=== PATIENT | female | born 1955 | race Caucasian/White ===

== ENCOUNTER 2018-11-25 17:44 | Inpatient (IN) | payer OTHER, SELFPAY ==
[2018-11-25 18:40] LABS: Bilirubin Negative (Negative); Blood, Urine Trace (Negative); Clarity CLEAR (Clear); Glucose, Urine (Dipstick) Negative (Negative); Leukocyte Negative (Negative); Nitrite Negative (Negative); Protein, Urine (Dipstick) 30 mg/dL (Neg-Trace); Specific Gravity, Urine 1.018 (1.002-1.036); Urobilinogen 0.2 mg/dL (0.2-1.0)
[2018-11-25 18:47] LABS: #Lymphocytes 0.9 thou/uL (1.20-3.40); #Monocytes 0.3 thou/uL (0.11-0.59); #Neutrophils 6.4 thou/uL (1.40-6.50); %Basophils 0.4 % (0.0-1.0); %Eosinophils 0.1 % (0.0-10.0); %Lymphocytes 11.9 % (21.0-51.0); %Monocytes 4.2 % (0.0-10.0); %Neutrophils 83.4 % (42.0-75.0); Hemoglobin 12.9 g/dL (12.0-16.0); Mean Corpuscular Volume 94.1 fL (78.0-98.0); Mean Platelet Volume 8.3 fL (7.4-10.4); Platelet Count 150 thou/uL (130-400); RBC Distribution Width 13.2 % (11.5-14.5); Red Blood Cell (RBC) Count 4.03 mill/uL (4.20-5.40); White Blood Cell (WBC) Count 7.7 thou/uL (4.8-10.8)
[2018-11-25 18:47] LABS: Bacteria/HPF None Seen HPF (None Seen); RBC/HPF None Seen HPF (0-3); Squamous Epithelial 0-3 HPF (0-3); WBC/HPF None Seen HPF (0-3)
[2018-11-25 18:48] LABS: Hyaline Casts/LPF NONE SEEN LPF (0-3 Hyaline)
[2018-11-25] MEDS ORDERED: Ondansetron PF 4 MG/2 ML Vial ONE (19:05)
[2018-11-25 19:09] LABS: ALT (SGPT) 13 U/L (8-55); AST (SGOT) 26 U/L (5-34); Albumin 4.3 g/dL (3.4-4.8); Alcohol Less than 10 mg/dL (Less than 10); Alkaline Phosphatase 44 U/L (40-150); Anion Gap 15 mmol/L (10-20); BUN (Urea Nitrogen) 15 mg/dL (9.8-20.1); Bilirubin, Total 0.4 mg/dL (0.2-1.2); CK (CPK) 162 U/L (29-168); Calc. Creatinine Clearance 0 mL/min (70-130); Calcium 9.2 mg/dL (7.8-10.44); Carbon Dioxide 24 mmol/L (23-31); Chloride 105 mmol/L (98-107); Estimated GFR-MDRD 67; Globulin 2.4 g/dL (2.4-3.5); Glucose 124 mg/dL (80-115); Potassium 3.8 mmol/L (3.5-5.1); Protein, Total 6.7 g/dL (6.0-8.3); Sodium 140 mmol/L (136-145)
[2018-11-25 19:31] LABS: CKMB 2.8 ng/mL (0-6.6)
--- NOTE | 2018-11-25 19:38 | CT ---
CT HEAD WITHOUT CONTRAST: Date: 11/25/18 Multiple axial tomograms obtained through head without IV enhancement. INDICATION: Syncope. No comparison. FINDINGS: Ventricles have normal size and position. There is mild cortical volume loss. No evidence of focal ma ss or infarct. There is a focal density at the foramen of Monro, which has somewhat of a linear appearance and has d ensity suggesting calcification. Colloid cyst can create at this location; however, this does not hav e the typical appearance. I could represent an irregular colloid cyst. An intraventricular hemorrhage is not completely excluded, but felt less likely. Recommend follow-up MRI to further evaluate this. No evidence of cortical infarct. No evidence of parenchymal mass or hemorrhage. Sinuses and mastoids are clear. IMPRESSION: Abnormal density at the foramen of Monro. An atypical colloid cyst is a consideration as noted above. Recommend further evaluation with MRI. POS: CIERRA
--- NOTE | 2018-11-25 19:40 | RAD ---
PORTABLE CHEST: Date: 11/25/18 HISTORY: Syncope. No comparison. FINDINGS: Lungs appear clear. No infiltrate. Heart is mildly enlarged. There is a scoliotic curvature of the th oracolumbar spine. Multiple clips in the right axilla indicate prior breast procedure. IMPRESSION: No acute lung process. POS: CIERRA
--- NOTE | 2018-11-25 22:07 | MRI ---
BRAIN MRI NONCONTRAST: Date: 11/25/18 INDICATION: Hyperdensity on preceding head CT, follow-up. FINDINGS: Discrete signal abnormality at the level of the foramen of Monro related to the head CT hyperdensity is not confirmed on the basis of this exam. There is motion artifact, which does limit evaluation. Mi nimal white matter signal alteration indicates microvascular ischemic disease. There is parenchymal v olume loss, mild in degree. The imaged skull base flow-voids are distorted by motion. No significant intracranial hemorrhagic susceptibility. No acute territorial infarction, intracranial mass effect, n or midline shift. IMPRESSION: 1. No definitive evidence for acute intracranial abnormality. 2. Signal abnormality related to hyperdensity at level of foramen of Monro is not confirmed on the b asis of this exam. This likely relates to choroid plexus calcification. As a conservative measure, re commend a short-term follow-up head CT to confirm stability and/or resolution, in 3-4 weeks. MERLE T. POS: TAWANNA
[2018-11-25 23:01] LABS: Troponin I 0.166 ng/mL (< 0.028)
[2018-11-25] MEDS ORDERED: Aspirin 325 MG TAB ONE (23:59)
[2018-11-26] MEDS ORDERED: Ondansetron ODT 4 MG TAB PO PRN (02:17)
[2018-11-26] MEDS ORDERED: Acetaminophen 325 MG TAB PO PRN (02:17)
[2018-11-26] MEDS ORDERED: Ondansetron PF 4 MG/2 ML Vial IVP PRN (02:17)
[2018-11-26] MEDS ORDERED: Acetaminophen 650 MG Suppository PR PRN (02:17)
[2018-11-26] MEDS ORDERED: Lorazepam 0.5 MG TAB PO PRN (02:24)
[2018-11-26 02:34] LABS: Troponin I 0.142 ng/mL (< 0.028)
[2018-11-26] MEDS: Nicotine 21 MG PATCH TD SCH (02:45)
[2018-11-26 04:06] LABS: #Lymphocytes 1.9 thou/uL (1.20-3.40); #Monocytes 0.4 thou/uL (0.11-0.59); #Neutrophils 3.5 thou/uL (1.40-6.50); %Basophils 0.2 % (0.0-1.0); %Eosinophils 0.3 % (0.0-10.0); %Lymphocytes 32.5 % (21.0-51.0); %Monocytes 6.6 % (0.0-10.0); %Neutrophils 60.4 % (42.0-75.0); Hemoglobin 11.9 g/dL (12.0-16.0); Mean Corpuscular HGB CONC 34.5 g/dL (32.0-36.0); Mean Corpuscular Hemoglobin 32.5 pg (27.0-31.0); Mean Platelet Volume 8.6 fL (7.4-10.4); Platelet Count 135 thou/uL (130-400); RBC Distribution Width 13.3 % (11.5-14.5); Red Blood Cell (RBC) Count 3.67 mill/uL (4.20-5.40); White Blood Cell (WBC) Count 5.8 thou/uL (4.8-10.8)
[2018-11-26 04:25] LABS: Anion Gap 10 mmol/L (10-20); BUN (Urea Nitrogen) 14 mg/dL (9.8-20.1); Calc. Creatinine Clearance 64 mL/min (70-130); Calcium 9.1 mg/dL (7.8-10.44); Carbon Dioxide 27 mmol/L (23-31); Cardiac Risk 2.5 (Less than 4.5); Chloride 108 mmol/L (98-107); Cholesterol 188 mg/dl (< 200 Desired); Estimated GFR-MDRD 72; Glucose 103 mg/dL (80-115); HDL Cholesterol 75 mg/dL (>60 Neg Risk); LDL Cholesterol, Calculated 100 mg/dL; Potassium 4.1 mmol/L (3.5-5.1); Sodium 141 mmol/L (136-145); Triglycerides 65 mg/dL (Less than 150)
[2018-11-26] MEDS ORDERED: Famotidine/PF 20 mg/2ml Vial SLOW IVP SCH (09:00)
--- NOTE | 2018-11-26 10:08 | HP ---
CHIEF COMPLAINT: Syncopal episode with shortness of breath. HISTORY OF PRESENT ILLNESS: Ms. 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 The patient states she recalls feeling faint and reports experiencing shortness of breath and lowering her go to the ground. She also recalls trying to crawl to get help and then does not recall anything after that. According to the ED notes, the syncopal episode was witnessed; however, the patient states she is not aware of how long she took to come to. She states she feels she may have overworked herself and had not maintained adequate fluid intake. She routinely drinks coffee throughout the day and adds 6 ounces of whiskey to her coffee to help with chronic back pain. The patient also takes 1000 mg of Natan aspirin every morning with her coffee. She does not drink any other liquids. The patient reports noting increasing shortness of breath for the last 2 to 3 months. She reports noticing gradual worsening with her breathing and feels often times short of breath while at rest. She denies experiencing any chest pain, but does report occasional right upper quadrant discomfort. She was reported to have had one episode of vomiting following her syncopal episode and also had an episode of diarrhea. The patient herself does not recall this. At this present time, she states she feels back to her usual self. She is very anxious at the moment and very concerned regarding her personal history of breast cancer. She underwent treatment in the 90s and had a bilateral mastectomy. She has a very strong family history of lung cancer, breast cancer , and colon cancer in her family. The patient states she often worries that any symptom or pain she might experience is associated with recurrent cancer. She does not follow up with anyone at this present time. In the ED, she underwent laboratory studies including a troponin, which was indeterminately elevated at 0.092. Again, the patient denied any complaints of chest pain; however, she is admitted for ACS rule out. REVIEW OF SYSTEMS: The patient reports feeling generally fatigued and states her shortness of breath has been progressively worsening over the course of the last 2 to 3 months. She reports a chronic cough but no hemoptysis. She smokes two packs per day. She states she often feels short of breath even while at rest. Denies having any chest pain. She does report having right upper quadrant discomfort that occurs occasionally and resolves briefly. She also complains of early satiety and feels her appetite has reduced significantly in the last few months. She has not noted any weight loss. Denies having any abdominal pain or cramping. No changes with her bowels. No urinary symptoms. No headaches or dizziness. No vision changes. All other review of systems apart from those mentioned above in HPI are negative. PAST MEDICAL HISTORY: 1. History of bilateral breast cancer. 2. Alcohol, excess. PAST SURGICAL HISTORY: 1. Bilateral mastectomy. 2. Bunionectomy of the left foot. SOCIAL HISTORY: The patient drinks a shot of whiskey with her coffee every morning. She smokes two packs of cigarettes per day. Denies any illicit drug use. PHYSICAL EXAMINATION: GENERAL: The patient appears thin, disheveled, well-developed, and in no acute distress. She did become tearful when speaking about her history of cancer in herself and her family. VITAL SIGNS: Temperature 98, pulse 84, respirations 18, O2 saturation 95% on room air, and blood pressure 122/84. HEENT: Normocephalic and atraumatic. Pupils are equal, round, and reactive to light. Sclerae are without icterus. Oropharynx is clear. NECK: Supple. LUNGS: Clear to auscultation bilaterally. CARDIAC: S1 and S2. Audible murmur. ABDOMEN: Soft, nontender, nondistended. Normoactive bowel sounds present. No guarding or rigidity. Negative Fritz sign. Liver edge is not palpable. No renal angle tenderness. EXTREMITIES: No lower leg swelling or edema. NEUROLOGIC: Alert and oriented x3. SKIN: Without rash or jaundice. LABORATORY DATA: White blood count 7.7, hemoglobin 12.9, hematocrit 37.9, and platelets 150. Sodium 140, potassium 3.8, BUN 15, creatinine 0.86, GFR 67, glucose 124, calcium 9.2, total bilirubin 0.4, AST 26, ALT 13, and alkaline phosphatase 24. CK 162, CK-MB 2.8. Troponin, 0.092 and 0.166. Total protein 6.7 and albumin 4.3. Urinalysis notable for 30 of protein, trace blood, less than 10 alcohol. IMAGING DATA: 1. Chest x-ray, 11/25/2018; no acute lung process. Heart is mildly enlarged. Scoliotic curvature of the thoracolumbar spine. 2. CT brain, 11/25/2018; abnormal density at the foramina of Monro. An atypical colloid cyst is a consideration. Further imaging with an MRI of the brain recommended. 3. Brain MRI, 11/25/2018; no definite evidence for acute intracranial abnormality. Signal abnormality related to hyperdensity at level of foramina of Monro is not confirmed on exam. Advise short-term followup PET-CT to assess for stability or resolution in the next 3 to 4 weeks. IMPRESSION AND PLAN: Ms. Childers is a 63 year old woman admitted for management of the followin. Syncope/SOB. Noted to have loud murmur on exam. Indeterminate troponin initially, continue to trend. CXR unremarkable, except cardiomegaly. Echo requested. BNP and D-Dimer requested. Lipid panel and TSH with am labs. UA requested. 2. Daily Alcohol use. Initiate ASE protocol. Ativan prn. Urine drug screen. 3. Hyperdensity at level of foramen of Montro. Short term follow-up head CT in 3-4 weeks as outpatient to assess for stability/vs. resolution. 4. Anxiety. Resume ativan. 5. Tobacco dependence. Smokes 2 ppd. Will start on Nicotine patch (21 mg). 6. GI prophylaxis. 8. FULL CODE STATUS. Surrogate Decision Maker: Shannan Childers. Patient case discussed with attending who agrees with plan as above. Job ID: [id number] MTDD
[2018-11-26 16:21] LABS: Medtox Reader # READER 1; THC/Cannabinoid Screen Not Detected (NotDetected)
[2018-11-26 16:22] LABS: Amphetamine Not Detected (NotDetected); Barbiturates Screen Not Detected (NotDetected); Benzodiazepine Screen Not Detected (NotDetected); Cocaine Metabolite Screen Not Detected (NotDetected); Medtox Control Line Valid? VALID (VALID); Methadone Not Detected (NotDetected); Methamphetamine Not Detected (NotDetected); Opiate Screen Not Detected (NotDetected); Oxycodone Screen Not Detected (NotDetected); Phencyclidine (PCP) Not Detected (NotDetected); Tricyclic Screen Not Detected (NotDetected)
--- NOTE | 2018-11-26 17:13 | PDOC.PN ---
- Subjective Encounter Start Date: 11/26/18 Encounter Start Time: 17:11 Patient lying in bed, she reports feeling okay today. She denies chest pain, but reports some mild shortness of breath with activity. Echo shows EF 20% and severe reduced - Objective Resuscitation Status - Order Detail: 11/26/18 02:17 Resuscitation Status Routine Co-Sign Provider: Resuscitation Status: FULL: Full Resuscitation MAR Reviewed: Yes Vital Signs & Weight: Vital Signs (12 hours) Temp Pulse Resp BP BP Pulse Ox 11/26/18 15:45 98.2 F 84 20 102/65 96 11/26/18 11:59 100/59 L 11/26/18 11:00 98.4 F 81 16 100/59 L 93 L 11/26/18 08:00 98/61 11/26/18 07:35 97.9 F 83 15 98/61 93 L 11/26/18 05:15 79 96/59 L Weight Admit Weight 125 lb Weight 125 lb I&O: 11/25/18 11/26/18 11/27/18 06:59 06:59 06:59 Intake Total 200 Balance 200 Result Diagrams: 11/26/18 03:57 11/26/18 03:57 Radiology Reviewed by me: Yes EKG Reviewed by me: Yes Phys Exam - Physical Examination Constitutional: NAD HEENT: moist MMs, oral pharynx no lesions Neck: supple Respiratory: no wheezing, clear to auscultation bilateral Cardiovascular: RRR 3/6 systolic murmur Gastrointestinal: soft, positive bowel sounds Musculoskeletal: pulses present +homans on the right Neurological: normal sensation, moves all 4 limbs Lymphatic: no nodes Psychiatric: normal affect, A&O x 3 Skin: normal turgor, cap refill <2 seconds Dx/Plan (1) Systolic heart failure Code(s): I50.20 - UNSPECIFIED SYSTOLIC (CONGESTIVE) HEART FAILURE Status: Acute (2) Aortic stenosis Code(s): I35.0 - NONRHEUMATIC AORTIC (VALVE) STENOSIS Status: Acute (3) Alcohol abuse Code(s): F10.10 - ALCOHOL ABUSE, UNCOMPLICATED Status: Acute (4) HTN (hypertension) Code(s): I10 - ESSENTIAL (PRIMARY) HYPERTENSION Status: Acute (5) HLD (hyperlipidemia) Code(s): E78.5 - HYPERLIPIDEMIA, UNSPECIFIED Status: Acute - Plan cont current plan of care, DVT proph w/lovenox * Cardiology following and discussed case with Dr Cooper * Patient with reduced EF of 20% and severe noted * Patient to have cardiac catheterization likely tomorrow to further access CAD , but she will ultimately need valve replacement surgery * Continue home medications * Patient with +homans and slightly elevated d-dimer, therefore LE doppler ordered and pending * She continues on Lovenox for DVT/PE prophylaxis * She will be transitioned to inpatient as her condition is complicated by severe reduced EF and
[2018-11-26] MEDS ORDERED: Enoxaparin Sodium 40 MG/0.4 ML SYRINGE SC SCH (17:15)
--- NOTE | 2018-11-26 17:47 | CON ---
DATE OF CONSULTATION: 11/26/2018 REASON FOR CONSULTATION: Syncope. HISTORY OF PRESENT ILLNESS: Ms. Childers is a very pleasant 63-year-old white female, who comes to the hospital for syncope. She was at home. She has a large property with animals. She was walking around, trying to feed her animals and felt faint, felt short winded and went down to the floor. She felt she woke up, she tried to crawl to get help, and then she does not remember anything after that. She is brought into the ER and admitted for further evaluation. Cardiology is being consulted for further evaluation and care of this. She had an echocardiogram, that showed a severely reduced ejection fraction at 20% to 25% and a very heavily calcified aortic valve with critical aortic valve stenosis. PAST MEDICAL HISTORY: 1. Bilateral breast cancer, status post bilateral mastectomies. 2. Alcohol use almost daily for chronic back pain. PAST SURGICAL HISTORY: 1. Bilateral mastectomy. 2. Bilateral breast implants. 3. Bunionectomy, left foot. SOCIAL HISTORY: Drinks a shot of whiskey in her coffee, she drinks 6 glasses of coffee a day, so she gets 6 shots of whiskey every day. Smokes 2 packs of cigarettes a day. No drug use. FAMILY HISTORY: Coronary artery disease in mother. REVIEW OF SYSTEMS: A 12-point review of systems was done and was all negative unless stated in the history of present illness. PHYSICAL EXAMINATION: VITAL SIGNS: Temperature 98.2, pulse 84, respiratory rate 20, sat 96% on room air, and blood pressure 102/65. GENERAL: Awake, alert, and oriented x3. No distress. HEENT: Normocephalic and atraumatic. NECK: Supple. LUNGS: Clear. CARDIOVASCULAR: S1 and S2. No S3 or S4. There is a grade 3/6 systolic murmur at the right upper sternal border. ABDOMEN: Soft. Positive bowel sounds. EXTREMITIES: No edema. SKIN: Warm and dry. LABORATORY DATA: Laboratory work was reviewed. White count of 7.7, hemoglobin of 12, hematocrit of 37, and platelet count of 150. Coags, D-dimer was high. Chemistry was unremarkable. Troponin is in the indeterminate range at 0.09, 0.16, 0.14. BNP was 2439. TSH is normal. Triglycerides of 65, cholesterol total of 188, LDL of 100, and HDL of 75. UA is unremarkable. Toxicology is negative. UA, no growth after 24 hours. DIAGNOSTIC DATA: Echocardiogram was reviewed, EF of 20% to 25%, valve area of 0.3 cm2. Small pericardial effusion without tamponade. ASSESSMENT: 1. Syncope. 2. Critical aortic valve stenosis. 3. Severe acute systolic heart failure, new onset. 4. Ongoing tobacco abuse. 5. History of breast cancer. PLAN: 1. Certainly, her syncope is most likely related to her aortic stenosis. 2. We will plan on doing a heart catheterization tomorrow as she is currently stable, not having any shortness of breath. She is not in acute exacerbation of heart failure. We will see what her burden of coronary artery disease is, to see what the best way to get her valve replaced will be. More than likely she will require surgical repair as the amount of calcification on the valve is probably too much for transcutaneous valve replacement. 3. We have spoken at length about the risks and benefits of the procedure, and she agrees to proceed. 4. Further recommendations per results of coronary angiogram. Job ID: [id number]
[2018-11-26] MEDS: Famotidine 20 MG TAB PO SCH (20:42)
--- NOTE | 2018-11-26 21:29 | ULT ---
RIGHT LOWER EXTREMITY VENOUS DUPLEX STUDY: 11/26/18 INDICATIONS: Pain and edema. Deep veins of the right lower extremity evaluated with color Doppler, spectral analysis and compressi on. Deep veins show normal blood flow and compression. No evidence of DVT. IMPRESSION: Negative right lower extremity venous duplex study. POS: CIERRA
[2018-11-27] MEDS: Nicotine 21 MG PATCH TD SCH ×2 (03:04→20:50)
[2018-11-27] MEDS: Enoxaparin Sodium 40 MG/0.4 ML SYRINGE SC SCH (09:41)
[2018-11-27] MEDS: Famotidine 20 MG TAB PO SCH ×2 (10:01→20:49)
[2018-11-27] MEDS ORDERED: Iopamidol 370 76% 100 ML VIAL ONE (10:46)
[2018-11-27] MEDS ORDERED: Acetaminophen/Codeine 30-300mg Tablet PO PRN (11:04)
[2018-11-27] MEDS ORDERED: Sodium Chloride 0.9% 200 ML IV PRN (11:04)
[2018-11-27] MEDS ORDERED: Sodium Chloride 0.9% 1,000 ML IV SCH (11:15)
--- NOTE | 2018-11-27 14:48 | PDOC.PN ---
- Subjective Encounter Start Date: 11/27/18 Encounter Start Time: 12:30 Doing ok. Post-cath. A little sleepy. - Objective Resuscitation Status - Order Detail: 11/26/18 02:17 Resuscitation Status Routine Co-Sign Provider: Resuscitation Status: FULL: Full Resuscitation Vital Signs & Weight: Vital Signs (12 hours) Temp Pulse Resp BP BP BP Pulse Ox 11/27/18 12:00 110/69 11/27/18 08:00 109/61 11/27/18 07:47 98.4 F 76 15 109/61 93 L 11/27/18 03:01 99.1 F 78 16 113/68 113/68 91 L Weight Admit Weight 125 lb Weight 127 lb 9.6 oz I&O: 11/26/18 11/27/18 11/28/18 06:59 06:59 06:59 Intake Total 200 1370 Output Total 500 Balance 200 870 Result Diagrams: 11/26/18 03:57 11/26/18 03:57 Phys Exam - Physical Examination Constitutional: NAD Cardiovascular: RRR, no rub Ao mumur Gastrointestinal: soft, non-tender, no distention, positive bowel sounds Musculoskeletal: no edema Neurological: non-focal, normal sensation, moves all 4 limbs Psychiatric: normal affect, A&O x 3 Skin: no rash, normal turgor, cap refill <2 seconds Dx/Plan (1) Alcohol abuse Code(s): F10.10 - ALCOHOL ABUSE, UNCOMPLICATED Status: Acute (2) Aortic stenosis Code(s): I35.0 - NONRHEUMATIC AORTIC (VALVE) STENOSIS Status: Acute (3) HLD (hyperlipidemia) Code(s): E78.5 - HYPERLIPIDEMIA, UNSPECIFIED Status: Acute (4) HTN (hypertension) Code(s): I10 - ESSENTIAL (PRIMARY) HYPERTENSION Status: Acute (5) Systolic heart failure Code(s): I50.20 - UNSPECIFIED SYSTOLIC (CONGESTIVE) HEART FAILURE Status: Acute (6) Syncope Code(s): R55 - SYNCOPE AND COLLAPSE Status: Acute (7) Cardiomyopathy Code(s): I42.9 - CARDIOMYOPATHY, UNSPECIFIED Status: Acute (8) Non-ischemic cardiomyopathy Code(s): I42.8 - OTHER CARDIOMYOPATHIES Status: Acute - Plan * Cath found no occlusive disease. * AoV is very calcified. * Discussed with Dr. Cooper. * Plan CT tomorrow to eval Ao and root. * Anticipates open heart valve replacement. * No evidence of decompensated failure now.
[2018-11-28] MEDS: Famotidine 20 MG TAB PO SCH ×2 (08:20→21:37)
[2018-11-28] MEDS: Enoxaparin Sodium 40 MG/0.4 ML SYRINGE SC SCH (08:21)
[2018-11-28] MEDS ORDERED: Iopamidol 370 76% 100 ML VIAL ONE (10:43)
--- NOTE | 2018-11-28 14:01 | CT ---
CT ANGIO CHEST WITH IV CONTRAST AND 3D POST PROCESSIN11/28/18 HISTORY: Chest pain, lethargy, aortic stenosis. Evaluate aortic root. FINDINGS: The thoracic aorta is well opacified without intimal flap to suggest dissection or aneurysmal dilatat ion. The thoracic aorta is ectatic. The thoracic aortic measurements are as follows: At the level of the aortic annulus: 2.8 cm. At the level of the aortic sinus of Valsalva: 3.8 cm. At the level of the sinotubular junction: 3.3 cm. Mid ascending aortic level: 4 cm. High ascending aortic level: 3.1 cm. Descending thoracic aorta: 2.3 cm. The pulmonary artery vasculature is well opacified without filling defects to suggest pulmonary embol ism. No pleural or pericardial effusions are seen. Bibasilar infiltrates versus atelectatic changes a re present. There are degenerative changes with scoliosis of the spine. There are bilateral breast im plants. IMPRESSION: 1. No evidence of aortic dissection or pulmonary embolism. 2. Aortic measurements are above. 3. Bibasilar infiltrate/atelectatic changes. POS: TPC
--- NOTE | 2018-11-28 14:02 | PDOC.PN ---
- Subjective Encounter Start Date: 11/28/18 Encounter Start Time: 13:30 Feels ok. Has a little back pain. Hx of scoliosis. - Objective Resuscitation Status - Order Detail: 11/26/18 02:17 Resuscitation Status Routine Co-Sign Provider: Resuscitation Status: FULL: Full Resuscitation Vital Signs & Weight: Vital Signs (12 hours) Temp Pulse Resp BP BP Pulse Ox 11/28/18 12:05 98.1 F 70 12 104/60 104/60 93 L 11/28/18 07:26 98.4 F 71 16 115/62 115/62 95 11/28/18 04:00 101/61 11/28/18 03:10 98.1 F 68 16 101/61 92 L Weight Admit Weight 125 lb Weight 127 lb 9.6 oz I&O: 11/27/18 11/28/18 11/29/18 06:59 06:59 06:59 Intake Total 1370 120 Output Total 500 Balance 870 120 Result Diagrams: 11/26/18 03:57 11/26/18 03:57 Phys Exam - Physical Examination Constitutional: NAD Respiratory: no wheezing, no rales, no rhonchi, clear to auscultation bilateral AoV mumur Gastrointestinal: soft, non-tender, no distention, positive bowel sounds Musculoskeletal: no edema Psychiatric: normal affect, A&O x 3 Skin: no rash, normal turgor, cap refill <2 seconds Dx/Plan (1) Aortic stenosis Code(s): I35.0 - NONRHEUMATIC AORTIC (VALVE) STENOSIS Status: Acute (2) HLD (hyperlipidemia) Code(s): E78.5 - HYPERLIPIDEMIA, UNSPECIFIED Status: Acute (3) HTN (hypertension) Code(s): I10 - ESSENTIAL (PRIMARY) HYPERTENSION Status: Acute (4) Systolic heart failure Code(s): I50.20 - UNSPECIFIED SYSTOLIC (CONGESTIVE) HEART FAILURE Status: Acute (5) Syncope Code(s): R55 - SYNCOPE AND COLLAPSE Status: Acute (6) Cardiomyopathy Code(s): I42.9 - CARDIOMYOPATHY, UNSPECIFIED Status: Acute (7) Non-ischemic cardiomyopathy Code(s): I42.8 - OTHER CARDIOMYOPATHIES Status: Acute (8) Alcohol abuse Code(s): F10.10 - ALCOHOL ABUSE, UNCOMPLICATED Status: Acute - Plan * Doing well. Awaiting results of CTA evaluating the Ao root. * Will likely need [facility] consult.
--- NOTE | 2018-11-28 17:22 | PDOC.CTH ---
Cardiology Progress Note - Subjective Feeling well. No new issues. - Objective Vital Signs Temp Pulse Resp BP BP Pulse Ox 11/28/18 15:52 98.3 F 65 16 101/66 93 L 11/28/18 12:05 98.1 F 70 12 104/60 104/60 93 L 11/28/18 07:26 98.4 F 71 16 115/62 115/62 95 Admit Weight 125 lb Weight 127 lb 9.6 oz 11/27/18 11/28/18 11/29/18 06:59 06:59 06:59 Intake Total 1370 120 Output Total 500 Balance 870 120 - Physical Examination General/Neuro: alert & oriented x3, NAD Neck: no JVD present Lungs: unlabored respirations Heart: RRR, other: (Grade 3/6 systolic late peaking murmru RUSB) Abdomen: NT/ND Extremities: other: (no edema) - Telemetry Telemetry Rhythm: NSR - Labs Result Diagrams: 11/26/18 03:57 11/26/18 03:57 Troponin/CKMB CK-MB (CK-2) 2.8 ng/mL (0-6.6) 11/25/18 18:29 Troponin I 0.142 ng/mL (< 0.028) H 11/26/18 01:50 - Assessment/Plan 1. Critical . 2. Syncope, likely from . 3. Normal coronary arteries. 4. Severe LV dysfunction. EF at 20-25% 5. Normal aortic root per CT angio. 6. Tobacco use 2PPD. 7. Breast Ca s/p bilat Mastectomy and subsequent implants. PLAN: - Consult CT surgery Dr Mcnair for consideration of AVR.
[2018-11-28] MEDS ORDERED: Communication Order-Pharmacy FS ONE (18:11)
[2018-11-28] MEDS: Nicotine 21 MG PATCH TD SCH (21:36)
--- NOTE | 2018-11-29 00:54 | CON ---
DATE OF CONSULTATION: HISTORY OF PRESENT ILLNESS: Ms. Childers is a 63-year-old woman who was admitted with a syncopal episode. She was moving a goat from one pin to the next and passed out. She since the time of admission has undergone workup which has included echocardiogram. This shows an ejection fraction of 20-25%. Aortic valve area is 0.3 cm2. Her peak to peak gradient is 118, mean gradient is 75. Peak velocity is 543 across the aortic valve with a mean velocity of 407. This is consistent with severe aortic stenosis. She had a cardiac catheterization performed yesterday, which shows no significant coronary artery disease. She has had a CT of her chest performed, which shows a calcified aortic valve. Maximal aortic diameter in the ascending aorta is 4.3 cm. She has large bilateral breast implants, which preclude her from having a minimally invasive approach in my hands. I have been asked to see her to discuss aortic valve replacement. PAST MEDICAL HISTORY: Breast cancer status post mastectomy and breast implants. PAST SURGICAL HISTORY: 1. Bilateral mastectomy. 2. Bunionectomy on the left foot. SOCIAL HISTORY: She smokes 2 packs of cigarettes a day. Does not use any other drugs. She also drinks a significant amount of alcohol. She has been admitted since 11/26 and has no symptomatology consistent with alcohol withdrawal currently. REVIEW OF SYSTEMS: A 10-point review of systems is performed and is negative except as above. PHYSICAL EXAMINATION: GENERAL: This is a well-developed, thin woman resting comfortably. VITAL SIGNS: Height 5 feet, weight is 127 pounds, BSA is 1.57, temperature 98.3, pulse is 65 and regular, and blood pressure is 101/66. HEENT: Sclerae nonicteric. Pupils are equal and round bilaterally. NECK: Supple with bilateral bruits. CHEST: Clear bilaterally. HEART: Rhythm is regular with a harsh systolic ejection murmur heard throughout the precordium. ABDOMEN: Soft and nontender. EXTREMITIES: There is no edema. VASCULAR: She has palpable carotid, radial and femoral pulses bilaterally. PSYCHIATRIC: She is awake, alert, and oriented to person, place, and time. ASSESSMENT AND PLAN: This is a 63-year-old woman with severe aortic stenosis and no coronary artery disease. She is not a minimally invasive surgery candidate due to her large breast implants. I have discussed sternotomy for aortic valve replacement and she is agreeable to make plans for Saturday. Job ID: [id number]
[2018-11-29] MEDS ORDERED: Acetaminophen 650 MG Suppository PR PRN (01:12)
[2018-11-29] MEDS ORDERED: Acetaminophen 325 MG TAB PO PRN (01:12)
[2018-11-29] MEDS ORDERED: Ondansetron PF 4 MG/2 ML Vial IVP PRN (01:13)
[2018-11-29] MEDS ORDERED: Lorazepam 0.5 MG TAB PO PRN (01:13)
[2018-11-29] MEDS ORDERED: Ondansetron ODT 4 MG TAB PO PRN (01:13)
[2018-11-29] MEDS ORDERED: Acetaminophen/Codeine 30-300mg Tablet PO PRN (01:14)
[2018-11-29] MEDS: Nicotine 21 MG PATCH TD SCH (02:22)
--- NOTE | 2018-11-29 07:20 | ULT ---
CAROTID ULTRASOUND WITH METZ SCALE AND DOPPLER DUPLEX COLOR FLOW IMAGING SPECTRAL ANALYSIS PERFORMED: CLINICAL INDICATION: Carotid bruit. FINDINGS: There is mild plaque/intimal thickening of the carotid arteries. PEAK SYSTOLIC VELOCITY (CM/S): Right CCA 148 Left CCA 64 Right ICA 50 Left ICA 52 There is antegrade flow within the visualized bilateral vertebral arteries. IMPRESSION: 1. There is no hemodynamically stenosis of the visualized right internal carotid artery. 2. There is no hemodynamically stenosis of the visualized left internal carotid artery. 3. There is asymmetric elevated velocity of the right common carotid artery. As necessary, this may be further discerned with CTA neck imaging. POS: TAWANNA
[2018-11-29] MEDS: Enoxaparin Sodium 40 MG/0.4 ML SYRINGE SC SCH (08:34)
[2018-11-29] MEDS: Famotidine 20 MG TAB PO SCH ×2 (08:36→21:06)
--- NOTE | 2018-11-29 12:39 | PDOC.PN ---
- Subjective Encounter Start Date: 11/29/18 Encounter Start Time: 11:55 Doing well. No complaints. Eating, drinking, bowels and bladder function all normal. - Objective Resuscitation Status - Order Detail: 11/26/18 02:17 Resuscitation Status Routine Co-Sign Provider: Resuscitation Status: FULL: Full Resuscitation Vital Signs & Weight: Vital Signs (12 hours) Temp Pulse Resp BP BP Pulse Ox 11/29/18 08:00 97.6 F 62 18 101/60 98 11/29/18 04:00 95/58 L 11/29/18 03:07 98.5 F 74 12 95/58 L 95 Weight Admit Weight 125 lb Weight 128 lb 9 oz I&O: 11/28/18 11/29/18 11/30/18 06:59 06:59 06:59 Intake Total 120 1760 Output Total 1700 Balance 120 60 Result Diagrams: 11/26/18 03:57 11/26/18 03:57 Phys Exam - Physical Examination Constitutional: NAD Respiratory: no wheezing, no rales, no rhonchi, clear to auscultation bilateral Cardiovascular: RRR, no rub AoV murmur. Gastrointestinal: soft, non-tender, no distention, positive bowel sounds Musculoskeletal: no edema, pulses present Neurological: non-focal Psychiatric: normal affect, A&O x 3 Skin: no rash, normal turgor, cap refill <2 seconds Dx/Plan (1) Aortic stenosis Code(s): I35.0 - NONRHEUMATIC AORTIC (VALVE) STENOSIS Status: Acute (2) HLD (hyperlipidemia) Code(s): E78.5 - HYPERLIPIDEMIA, UNSPECIFIED Status: Acute (3) HTN (hypertension) Code(s): I10 - ESSENTIAL (PRIMARY) HYPERTENSION Status: Acute (4) Systolic heart failure Code(s): I50.20 - UNSPECIFIED SYSTOLIC (CONGESTIVE) HEART FAILURE Status: Acute (5) Syncope Code(s): R55 - SYNCOPE AND COLLAPSE Status: Acute (6) Cardiomyopathy Code(s): I42.9 - CARDIOMYOPATHY, UNSPECIFIED Status: Acute (7) Non-ischemic cardiomyopathy Code(s): I42.8 - OTHER CARDIOMYOPATHIES Status: Acute (8) Alcohol abuse Code(s): F10.10 - ALCOHOL ABUSE, UNCOMPLICATED Status: Acute - Plan * Stable. Plan AoV surg on Saturday. * Continue DVT prophylaxis. She stopped the Pepcid.
[2018-11-30] MEDS: Nicotine 21 MG PATCH TD SCH (00:04)
[2018-11-30] MEDS: Famotidine 20 MG TAB PO SCH ×3 (08:55→21:32)
[2018-11-30] MEDS: Enoxaparin Sodium 40 MG/0.4 ML SYRINGE SC SCH (08:55)
--- NOTE | 2018-11-30 11:00 | PDOC.PN ---
- Subjective Encounter Start Date: 11/30/18 Encounter Start Time: 09:30 Doing well. Ready for surgery tomorrow. - Objective Resuscitation Status - Order Detail: 11/26/18 02:17 Resuscitation Status Routine Co-Sign Provider: Resuscitation Status: FULL: Full Resuscitation Vital Signs & Weight: Vital Signs (12 hours) Temp Pulse Resp BP BP Pulse Ox 11/30/18 08:00 97.6 F 78 18 91/57 L 93 L 11/30/18 06:45 91/57 L 11/30/18 03:51 98.1 F 66 18 88/52 L 96 Weight Admit Weight 125 lb Weight 126 lb 9.6 oz I&O: 11/29/18 11/30/18 12/01/18 06:59 06:59 06:59 Intake Total 1760 1040 240 Output Total 1700 1530 Balance 60 -490 240 Result Diagrams: 11/26/18 03:57 11/26/18 03:57 Phys Exam - Physical Examination Constitutional: NAD Respiratory: no wheezing, no rales, no rhonchi, clear to auscultation bilateral Cardiovascular: RRR, no rub AoV Mumur Gastrointestinal: soft, non-tender, no distention, positive bowel sounds Musculoskeletal: no edema, pulses present Neurological: non-focal, normal sensation, moves all 4 limbs Psychiatric: normal affect, A&O x 3 Dx/Plan (1) Aortic stenosis Code(s): I35.0 - NONRHEUMATIC AORTIC (VALVE) STENOSIS Status: Acute (2) HLD (hyperlipidemia) Code(s): E78.5 - HYPERLIPIDEMIA, UNSPECIFIED Status: Acute (3) HTN (hypertension) Code(s): I10 - ESSENTIAL (PRIMARY) HYPERTENSION Status: Acute (4) Systolic heart failure Code(s): I50.20 - UNSPECIFIED SYSTOLIC (CONGESTIVE) HEART FAILURE Status: Acute (5) Syncope Code(s): R55 - SYNCOPE AND COLLAPSE Status: Acute (6) Cardiomyopathy Code(s): I42.9 - CARDIOMYOPATHY, UNSPECIFIED Status: Acute (7) Non-ischemic cardiomyopathy Code(s): I42.8 - OTHER CARDIOMYOPATHIES Status: Acute (8) Alcohol abuse Code(s): F10.10 - ALCOHOL ABUSE, UNCOMPLICATED Status: Acute - Plan * Doing well overall. * Surgery anticipated tomorrow for AoV. * Continue nicotine patch.
[2018-12-01] MEDS: Nicotine 21 MG PATCH TD SCH (02:25)
[2018-12-01] MEDS ORDERED: Vancomycin HCl 1 GM in Premix Bag 1 BAG IVPB SCH (10:00)
[2018-12-01] MEDS ORDERED: Albumin 5% 0 ML ONE (10:32)
[2018-12-01] MEDS ORDERED: Fentanyl 100 MCG/2 ML VIAL ONE (10:58)
[2018-12-01] MEDS ORDERED: Midazolam HCl 5 mg/5 ml Vial ONE (10:58)
[2018-12-01] MEDS ORDERED: Vecuronium 10 MG VIAL ONE ×2 (10:59→15:31)
[2018-12-01] MEDS ORDERED: Dexmedetomidine 200 MCG/2 ML VIAL ONE (10:59)
[2018-12-01] MEDS ORDERED: Milrinone 10 MG/10 ML VIAL ONE (10:59)
[2018-12-01] MEDS ORDERED: Norepinephrine 4 MG/4 ML VIAL ONE (10:59)
[2018-12-01] MEDS ORDERED: Ropivacaine 0.5% HCl/PF (150 MG/30 ML VIAL) ONE (10:59)
[2018-12-01] MEDS ORDERED: Heparin 10,000 UNITS/1 ML VIAL 30,000 UNITS in Sodium Chloride 0.9% 1,000 ML FS SCH (11:30)
--- NOTE | 2018-12-01 11:45 | PDOC.CTH ---
Cardiology Progress Note - Subjective Awaiting for surgery today. No new issues. - Objective Vital Signs Temp Pulse Resp BP BP Pulse Ox 12/01/18 08:00 96.2 F L 73 18 97/54 L 96 12/01/18 04:00 97.7 F 67 16 95/58 L 96 11/30/18 23:55 97.6 F 70 14 99/58 L 96 Admit Weight 125 lb Weight 126 lb 9.6 oz 11/30/18 12/01/18 12/02/18 06:59 06:59 06:59 Intake Total 1040 1095 Output Total 1530 Balance -490 1095 - Physical Examination General/Neuro: alert & oriented x3, NAD Neck: no JVD present Lungs: CTA, unlabored respirations Heart: RRR Abdomen: NT/ND Extremities: other: (no edema) - Telemetry Telemetry Rhythm: NSR - Labs Result Diagrams: 11/26/18 03:57 11/26/18 03:57 Troponin/CKMB CK-MB (CK-2) 2.8 ng/mL (0-6.6) 11/25/18 18:29 Troponin I 0.142 ng/mL (< 0.028) H 11/26/18 01:50 - Assessment/Plan 1. Critical 2. Syncope, likely due to critical . 3. Normal coronaries 4. Tobacco use 5. Hx of breast Ca PLAN: - AVR today.
[2018-12-01] MEDS ORDERED: Bupivacaine HCl 0.5%/Epinephrine 1:200,000/PF 30 ml Vial ONE (13:38)
[2018-12-01] MEDS ORDERED: Dexamethasone 4 mg/ml Vial ONE (13:38)
[2018-12-01] MEDS ORDERED: Albumin 5% 500 ML ONE (14:18)
[2018-12-01] MEDS ORDERED: Guaifenesin DM 100-10/5 ML UDCUP PO PRN (14:53)
[2018-12-01] MEDS ORDERED: Nitroglycerin 50 MG/250 ML BOT 250 ML IVPB PRN (14:53)
[2018-12-01] MEDS ORDERED: Potassium Chloride 20 MEQ/100 ML PREMIX BAG IVPB PRN (14:53)
[2018-12-01] MEDS ORDERED: Bisacodyl 5 MG TAB PO PRN (14:53)
[2018-12-01] MEDS ORDERED: Norepinephrine 8 MG in Dextrose 5% in Water 250 ML IVPB PRN (14:53)
[2018-12-01] MEDS ORDERED: HEXTEND 6% LR 500ML 500 ML IVPB PRN (14:53)
[2018-12-01] MEDS ORDERED: HYDROcodone/Acetaminophen 5/325 mg Tablet PO PRN ×2 (14:53)
[2018-12-01] MEDS ORDERED: Mag-Al 1200 mg/1200 mg/30 ML UDCUP PO PRN (14:53)
[2018-12-01] MEDS ORDERED: Ondansetron PF 4 MG/2 ML Vial IVP PRN (14:53)
[2018-12-01] MEDS ORDERED: hydrALAZINE 20 MG/ML VIAL SLOW IVP PRN (14:53)
[2018-12-01] MEDS ORDERED: Fentanyl 100 MCG/2 ML VIAL SLOW IVP PRN ×2 (14:53)
[2018-12-01] MEDS ORDERED: Bisacodyl 10 MG SUPP PR PRN (14:53)
[2018-12-01] MEDS ORDERED: Acetaminophen 325 MG TAB PO PRN (14:53)
[2018-12-01] MEDS ORDERED: Promethazine HCl 25 MG/ML VIAL IM PRN (14:53)
[2018-12-01] MEDS ORDERED: Magnesium 2 GM/50 ML 2 GM in Premix Bag 1 BAG IVPB SCH (15:00)
[2018-12-01] MEDS ORDERED: CEFAZOLIN 2 GM in Premix Bag 1 BAG IVPB SCH ×2 (15:00→18:30)
[2018-12-01] MEDS ORDERED: Nitroglycerin 50 MG/250 ML BOT 0 ML ONE (15:13)
[2018-12-01 15:23] LABS: INR-International Normal Ratio 1.3; PTT 39.7 SEC (22.9-36.1); Prothrombin Time 15.9 SEC (12.0-14.7)
--- NOTE | 2018-12-01 15:24 | RAD ---
RADIOGRAPH CHEST 1 VIEW: DATE: 12/01/2018 TIME: 3:10 PM HISTORY: 63-year-old female status post open heart surgery COMPARISON: 11/25/2018 FINDINGS: All of the following are new since the prior study: Prosthetic aortic valve. Right subclavian central line with distal tip overlying right atrium. Endotracheal tube distal tip overlying mid thoracic trachea. 2 parallel right paramedian chest tubes ascending from inferiorly, with distal tips at mid chest leve l. Sternotomy wires. Supine positioning makes this insensitive for pneumothorax detection. No consolidation or micaela pulmo nary alveolar edema. Lateral costophrenic angles are sharp. IMPRESSION: Status post aortic valve replacement with left support lines as above. No pulmonary edema or consolid ation.
[2018-12-01 15:25] LABS: #Basophils 0.1 thou/uL (0.0-0.2); #Eosinphils 0.1 thou/uL (0.0-0.7); #Lymphocytes 1.9 thou/uL (1.20-3.40); #Monocytes 0.4 thou/uL (0.11-0.59); %Basophils 0.6 % (0.0-1.0); %Eosinophils 0.4 % (0.0-10.0); %Lymphocytes 15.4 % (21.0-51.0); %Monocytes 3.5 % (0.0-10.0); %Neutrophils 80.2 % (42.0-75.0); Hemoglobin 11.2 g/dL (12.0-16.0); Mean Corpuscular HGB CONC 33.7 g/dL (32.0-36.0); Mean Corpuscular Hemoglobin 31.8 pg (27.0-31.0); Mean Corpuscular Volume 94.3 fL (78.0-98.0); Mean Platelet Volume 8.3 fL (7.4-10.4); Platelet Count 116 thou/uL (130-400); Red Blood Cell (RBC) Count 3.52 mill/uL (4.20-5.40); White Blood Cell (WBC) Count 12.5 thou/uL (4.8-10.8)
[2018-12-01] MEDS ORDERED: Lidocaine 2% PF 100 mg/5 ml Syringe ONE (15:31)
[2018-12-01] MEDS ORDERED: Sodium Bicarb 50 MEQ/50 ML VIAL ONE (15:31)
[2018-12-01] MEDS ORDERED: Aminocaproic Acid 5 GM/20 ML VIAL ONE (15:31)
[2018-12-01] MEDS ORDERED: Magnesium 5 GM/10 ML VIAL ONE (15:31)
[2018-12-01] MEDS ORDERED: Thrombin 5000 UNITS/5 ML VIAL ONE (15:31)
[2018-12-01] MEDS ORDERED: Calcium Chloride 1 GM/10 ML Abboject SYRINGE ONE (15:31)
[2018-12-01] MEDS ORDERED: Mannitol 12.5 GM/50 ML ONE (15:31)
[2018-12-01] MEDS ORDERED: Potassium Chloride 60 MEQ/30 ML VIAL ONE (15:31)
[2018-12-01] MEDS ORDERED: Heparin 30,000 units/30 ml VIAL ONE (15:31)
[2018-12-01] MEDS ORDERED: Phenylephrine HCL 10 MG/ML VIAL ONE (15:31)
[2018-12-01] MEDS ORDERED: Protamine Sulfate 250 MG/25 ML VIAL ONE (15:31)
[2018-12-01] MEDS: D5 1/2 NS w/20 mEq KCL 1,000 ML IV SCH (15:31)
[2018-12-01] MEDS ORDERED: PROPOFOL 200 MG/20 ML VIAL ONE (15:31)
[2018-12-01 15:37] LABS: Anion Gap 13 mmol/L (10-20); BUN (Urea Nitrogen) 10 mg/dL (9.8-20.1); Calc. Creatinine Clearance 73 mL/min (70-130); Calcium 7.9 mg/dL (7.8-10.44); Carbon Dioxide 20 mmol/L (23-31); Chloride 111 mmol/L (98-107); Estimated GFR-MDRD 82; Glucose 180 mg/dL (80-115); Potassium 4.4 mmol/L (3.5-5.1); Sodium 140 mmol/L (136-145)
--- NOTE | 2018-12-01 15:46 | PDOC.PN ---
- Subjective Encounter Start Date: 12/01/18 Encounter Start Time: 15:45 Subjective: post op, still on vent - Objective Resuscitation Status - Order Detail: 11/26/18 02:17 Resuscitation Status Routine Co-Sign Provider: Resuscitation Status: FULL: Full Resuscitation MAR Reviewed: Yes Vital Signs & Weight: Vital Signs (12 hours) Temp Pulse Resp BP BP BP Pulse Ox 12/01/18 15:07 85 151/84 H 12/01/18 08:00 96.2 F L 73 18 97/54 L 96 12/01/18 04:00 97.7 F 67 16 95/58 L 96 Weight Admit Weight 125 lb Weight 126 lb 9.6 oz I&O: 11/30/18 12/01/18 12/02/18 06:59 06:59 06:59 Intake Total 1040 1095 Output Total 1530 Balance -490 1095 Result Diagrams: 12/01/18 15:05 12/01/18 15:05 Additional Labs: Accuchecks 12/01/18 12/01/18 12/01/18 15:10 13:17 12:45 POC Glucose 179 H 137 H 128 H Phys Exam - Physical Examination intubated Neck: no JVD rhochi diffusely Cardiovascular: RRR, no significant murmur Gastrointestinal: soft, non-tender, positive bowel sounds Musculoskeletal: no edema Dx/Plan (1) Alcohol abuse Code(s): F10.10 - ALCOHOL ABUSE, UNCOMPLICATED Status: Acute (2) Aortic stenosis Code(s): I35.0 - NONRHEUMATIC AORTIC (VALVE) STENOSIS Status: Acute Qualifiers: Cardiac valve disease etiology: etiology unspecified Qualified Code(s): I35.0 - Nonrheumatic aortic (valve) stenosis (3) Cardiomyopathy Code(s): I42.9 - CARDIOMYOPATHY, UNSPECIFIED Status: Acute Qualifiers: Cardiomyopathy type: unspecified Qualified Code(s): I42.9 - Cardiomyopathy , unspecified (4) HLD (hyperlipidemia) Code(s): E78.5 - HYPERLIPIDEMIA, UNSPECIFIED Status: Chronic Qualifiers: Hyperlipidemia type: unspecified Qualified Code(s): E78.5 - Hyperlipidemia , unspecified (5) HTN (hypertension) Code(s): I10 - ESSENTIAL (PRIMARY) HYPERTENSION Status: Chronic Qualifiers: Hypertension type: essential hypertension Qualified Code(s): I10 - Essential (primary) hypertension (6) Systolic heart failure Code(s): I50.20 - UNSPECIFIED SYSTOLIC (CONGESTIVE) HEART FAILURE Status: Acute Qualifiers: Heart failure chronicity: unspecified Qualified Code(s): I50.20 - Unspecified systolic (congestive) heart failure - Plan post op thoracotomy with aortic valve replaement, doing well at present * .
[2018-12-01 15:57] LABS: Actual Bicarbonate (HCO3a) 19.6 mEq/L (22-28); Base Excess (BEa) -4.3 mEq/L (-2.0 to +3.0); Calcium, Ionized 1.08 mmol/L (1.12-1.30); Carboxyhemoglobin (COHb) 0.4 gm% (0.0-3.0); Hemoglobin (Hb) 12.1 g/dL (12.0-16.0); O2 Tension (PaO2) 77.3 mmHg (> 80.0); Potassium - ABG Lab 3.87 mmol/L (3.70-5.30)
[2018-12-01 16:07] LABS: Puncture Site ALINE
[2018-12-01] MEDS: CEFAZOLIN 2 GM in Premix Bag 1 BAG IVPB SCH (16:34)
[2018-12-01] MEDS: Ketorolac Tromethamine 30 MG/ML VIAL IVP SCH (16:34)
--- NOTE | 2018-12-01 17:02 | OP ---
DATE OF PROCEDURE: 12/01/2018 PREOPERATIVE DIAGNOSIS: Aortic stenosis. POSTOPERATIVE DIAGNOSIS: Aortic stenosis. PROCEDURES PERFORMED: 1. Aortic valve replacement with #27 Magna bioprosthetic valve. 2. Ligation of left atrial appendage. CO-SURGEON: Dr. Kendrick Pearson. ANESTHESIA: General endotracheal - Tamiko Pagan CRNA. PUMP TIME: 78 minutes. CROSS-CLAMP TIME: 57 minutes. LOW CORE TEMPERATURE: 34 degrees Celsius. BEAD MACHINE OPERATOR: Carla García. DRAINS: 24-Georgian chest tubes x2. DRIPS: None. TRANSFUSIONS: None. DESCRIPTION OF PROCEDURE: After consent was obtained, the patient was brought to the operating room, placed in the supine position on the operating table. Appropriate central line was placed and general endotracheal anesthesia induced. Chest and legs were prepped and draped in usual sterile fashion. A skin incision was made for sternotomy. A median sternotomy was performed. The patient was systemically heparinized. Thymic fat and pericardium were divided with electrocautery. Pericardial stay sutures were placed. The aortic and atrial cannulation was performed. After adequate heparinization, retrograde prime was performed. The patient was placed on cardiopulmonary bypass. The left ventricular sump drain was placed into the right superior pulmonary vein. Aortic cross- clamp was applied and antegrade sanguinous cardioplegic arrest was obtained. 1 L of antegrade cold [place] cardioplegia was given. Topical cold solution was used. The left atrial appendage was ligated at its base with running mattressed 4-0 Prolene suture. A transverse hockey-stick aortotomy was then performed. Carbon dioxide was infused in the pericardium throughout the open portion of the procedure. The valve was inspected. There was a 3 leaflet valve with fused left and right commissures. Leaflets were debrided. They were heavily calcified and thickened. Anulus was decalcified. The valve measured as a 27 Magna. This valve was brought into the operative field and washed. Pledgeted 2-0 Ethibond sutures were placed in the anulus. These were then passed through the sewing ring of the valve. The valve seated nicely. Valve was secured with Cor-Knots. Aortotomy was closed in a running fashion in 2 layers with pledgeted 4-0 Prolene suture. De-airing maneuvers were performed prior to the time of suture. Suture was tied. The patient was placed in Trendelenburg position and the cross-clamp removed. After resumption of sinus rhythm, the patient was allowed to eject. The left ventricular sump drain was then removed in its pursestring suture. The aortic cardioplegic needle was removed in its pursestring suture. After resumption of sinus rhythm, good hemodynamics, temperature greater than 36.5, bypass was discontinued. Transfusions were given. Protamine was administered. Decannulation was performed with pursestring suture. The aortic cannulation site was reinforced with pledgeted 4-0 prolene suture. Vancomycin paste was placed on the sternal edges. After adequate hemostasis had been obtained, 24-Georgian chest tubes x2 were placed in the mediastinum. The sternum was closed with #7 wire. Sternum was treated with platelet rich plasma. Wires twisted. Wounds were irrigated and treated with platelet-poor plasma and closed in multiple layers. Needle, sponge, and instrument counts were all reported as correct at the end of the procedure. The patient tolerated the procedure well and was transferred to the intensive care unit in stable, but critical condition. Job ID: [id number] [facility]
--- NOTE | 2018-12-01 18:22 | CON ---
DATE OF CONSULTATION: HISTORY OF PRESENT ILLNESS: Ms. Childers is a 63-year-old female, who has undergone coronary artery bypass grafting today. She is being evaluated after she returned to the critical care unit. She presented on November 26 with syncope and shortness of breath. PAST MEDICAL HISTORY: Remarkable for: 1. Breast cancer and bilateral mastectomy. 2. History of bunionectomy. 3. History of daily whiskey use and 2 packs a day smoking. She does not use drugs reportedly. ALLERGIES: REPORTED TO [facility]. FAMILY HISTORY: Negative for lung disease in early age. REVIEW OF SYSTEMS: 10-point review of systems is not obtainable. She is intubated. PHYSICAL EXAMINATION: VITAL SIGNS: Blood pressure is 151/84, heart rate is 85, respiratory rate is 18, oximetry is 96 on room air prior to surgery. HEENT: Pupils are equal. Sclerae are anicteric. She appears older than her age. NECK: Supple. No lymphadenopathy. LUNGS: Remarkable for no wheezes. HEART: Regular rhythm. S1 and S2 are normal. She is in sinus rhythm by monitor. ABDOMEN: Soft and nontender. EXTREMITIES: Without asymmetry or edema. They are warm. LABORATORY DATA: White count 12.5, hemoglobin 11.2, platelets 116,000. Sodium 140, potassium 4.4, chloride 111, bicarb 20, BUN 10, creatinine 0.72. Drug screen on admission was negative. Urinalysis was unremarkable. IMPRESSION: Status post coronary artery bypass grafting, clinically stable. Hopefully, she will wean per protocol. Blood gases are pending as she just returned from the operating suite. We will be happy to follow the other physicians caring for her. TIME SPENT: This is a 70-minute consult, 50% of the time spent on the unit coordinating care. Job ID: [id number]
[2018-12-01] MEDS ORDERED: CEFAZOLIN 1 GM VIAL SLOW IVP SCH (18:30)
[2018-12-01 19:40] LABS: Actual Bicarbonate (HCO3a) 17.7 mEq/L (22-28); Calcium, Ionized 1.09 mmol/L (1.12-1.30); Carboxyhemoglobin (COHb) 0.2 gm% (0.0-3.0); Hemoglobin (Hb) 10.6 g/dL (12.0-16.0); Potassium - ABG Lab 3.98 mmol/L (3.70-5.30)
[2018-12-01 19:42] LABS: CO2 Tension 20.5 mmHg (35.0-45.0); Puncture Site LINE; pH, Arterial 7.56 (7.35-7.45)
[2018-12-01 19:43] LABS: ALV-art Gradient 180.575 (0-20)
[2018-12-01] MEDS: Vancomycin HCl 1 GM in Premix Bag 1 BAG IVPB SCH (20:50)
[2018-12-01] MEDS: Famotidine/PF 20 mg/2ml Vial SLOW IVP SCH (20:51)
[2018-12-01] MEDS: Morphine 4 MG/ML VIAL SLOW IVP PRN ×2 (21:17→23:04)
[2018-12-01 21:59] LABS: Potassium 3.8 mmol/L (3.5-5.1)
[2018-12-02] MEDS: Ketorolac Tromethamine 30 MG/ML VIAL IVP SCH ×4 (01:21→18:25)
[2018-12-02] MEDS: CEFAZOLIN 2 GM in Premix Bag 1 BAG IVPB SCH ×2 (01:22→08:58)
[2018-12-02] MEDS: Morphine 4 MG/ML VIAL SLOW IVP PRN ×2 (03:30)
[2018-12-02 04:30] LABS: #Lymphocytes 0.6 thou/uL (1.20-3.40); #Monocytes 0.4 thou/uL (0.11-0.59); #Neutrophils 5.9 thou/uL (1.40-6.50); %Lymphocytes 8.6 % (21.0-51.0); %Monocytes 5.7 % (0.0-10.0); %Neutrophils 85.7 % (42.0-75.0); Hemoglobin 9.1 g/dL (12.0-16.0); Mean Corpuscular HGB CONC 33.9 g/dL (32.0-36.0); Mean Corpuscular Hemoglobin 31.9 pg (27.0-31.0); Mean Platelet Volume 8.7 fL (7.4-10.4); Platelet Count 93 thou/uL (130-400); RBC Distribution Width 12.9 % (11.5-14.5); Red Blood Cell (RBC) Count 2.84 mill/uL (4.20-5.40); White Blood Cell (WBC) Count 6.8 thou/uL (4.8-10.8)
[2018-12-02 04:44] LABS: Anion Gap 12 mmol/L (10-20); BUN (Urea Nitrogen) 11 mg/dL (9.8-20.1); Calc. Creatinine Clearance 73 mL/min (70-130); Calcium 8.3 mg/dL (7.8-10.44); Carbon Dioxide 19 mmol/L (23-31); Chloride 111 mmol/L (98-107); Estimated GFR-MDRD 82; Glucose 124 mg/dL (80-115); Potassium 4.7 mmol/L (3.5-5.1); Sodium 137 mmol/L (136-145)
--- NOTE | 2018-12-02 07:20 | RAD ---
CHEST 1 VIEW: Date: 12/02/18 INDICATION: History of open heart surgery. COMPARISON: Prior exam dated 12/01/18 at 1510 hours. FINDINGS: The patient remains intubated with right subclavian central venous catheter. There is a right-sided t horacostomy tube in place. No pneumothorax is evident. Lungs are clear. There is mild cardiomegaly. A ortic valvular replacement is unchanged in position. Surgical clips within the right axillary region are stable. IMPRESSION: Stable exam. POS: BH
--- NOTE | 2018-12-02 08:38 | PDOC.CTH ---
Cardiology Progress Note - Subjective She was extubated earlier today. BP borderline low. - Objective Vital Signs Temp Pulse Resp BP Pulse Ox 12/02/18 06:16 99 12/02/18 06:00 11 L 12/02/18 04:00 99.2 F 10 L 101/59 L 12/02/18 02:23 74 97/61 12/02/18 02:00 17 12/02/18 00:00 98.9 F 20 104/51 L 12/01/18 22:18 70 94/59 L 12/01/18 22:00 9 L Admit Weight 125 lb Weight 129 lb 3.054 oz 12/01/18 12/02/18 12/03/18 06:59 06:59 06:59 Intake Total 1095 1998.9 Output Total 1220 40 Balance 1095 778.9 -40 - Physical Examination General/Neuro: alert & oriented x3, NAD Neck: no JVD present Lungs: unlabored respirations Heart: RRR Abdomen: NT/ND Extremities: other: (no edema) - Telemetry Telemetry Rhythm: NSR - Labs Result Diagrams: 12/02/18 04:15 12/02/18 04:15 Troponin/CKMB CK-MB (CK-2) 2.8 ng/mL (0-6.6) 11/25/18 18:29 Troponin I 0.142 ng/mL (< 0.028) H 11/26/18 01:50 - Assessment/Plan 1. Critical , s/p AVR 2. Syncope, likely due to critical . 3. Normal coronaries 4. Tobacco use 5. Hx of breast Ca PLAN: - Continue post op care. - Aspirin for life. - PT as tolerated.
[2018-12-02] MEDS: Magnesium 2 GM/50 ML 2 GM in Premix Bag 1 BAG IVPB SCH (08:57)
[2018-12-02] MEDS: Famotidine/PF 20 mg/2ml Vial SLOW IVP SCH (08:58)
[2018-12-02] MEDS: Vancomycin HCl 1 GM in Premix Bag 1 BAG IVPB SCH (09:10)
--- NOTE | 2018-12-02 11:35 | PDOC.PN ---
- Subjective Encounter Start Date: 12/02/18 Encounter Start Time: 11:33 Subjective: fatigued, mild chest discomfort - Objective Resuscitation Status - Order Detail: 11/26/18 02:17 Resuscitation Status Routine Co-Sign Provider: Resuscitation Status: FULL: Full Resuscitation MAR Reviewed: Yes Vital Signs & Weight: Vital Signs (12 hours) Temp Pulse Resp BP Pulse Ox 12/02/18 08:11 87/57 L 12/02/18 08:00 98.9 F 12/02/18 06:16 99 12/02/18 06:00 11 L 12/02/18 04:00 99.2 F 10 L 101/59 L 12/02/18 02:23 74 97/61 12/02/18 02:00 17 12/02/18 00:00 98.9 F 20 104/51 L Weight Admit Weight 125 lb Weight 129 lb 3.054 oz Most Recent Monitor Data Heart Rate from ECG 70 NIBP 80/50 NIBP BP-Mean 65 Respiration from ECG 16 SpO2 100 I&O: 12/01/18 12/02/18 12/03/18 06:59 06:59 06:59 Intake Total 1095 1998.9 200 Output Total 1220 182 Balance 1095 778.9 18 Result Diagrams: 12/02/18 04:15 12/02/18 04:15 Additional Labs: Accuchecks 12/01/18 12/01/18 12/01/18 15:10 14:36 14:14 POC Glucose 179 H 131 H 146 H 12/01/18 12/01/18 12/01/18 13:17 12:45 12:20 POC Glucose 137 H 128 H 90 12/01/18 12:10 POC Glucose 93 Radiology Reviewed by me: Yes (cxr-ET tube, post sternotomy changes) Phys Exam - Physical Examination Neck: no JVD occ rhonchi OW clear Cardiovascular: RRR sot systolicc murmur Gastrointestinal: soft, positive bowel sounds Musculoskeletal: edema present Dx/Plan (1) Alcohol abuse Code(s): F10.10 - ALCOHOL ABUSE, UNCOMPLICATED Status: Acute (2) Aortic stenosis Code(s): I35.0 - NONRHEUMATIC AORTIC (VALVE) STENOSIS Status: Acute Qualifiers: Cardiac valve disease etiology: etiology unspecified Qualified Code(s): I35.0 - Nonrheumatic aortic (valve) stenosis (3) Cardiomyopathy Code(s): I42.9 - CARDIOMYOPATHY, UNSPECIFIED Status: Acute Qualifiers: Cardiomyopathy type: unspecified Qualified Code(s): I42.9 - Cardiomyopathy , unspecified (4) HLD (hyperlipidemia) Code(s): E78.5 - HYPERLIPIDEMIA, UNSPECIFIED Status: Chronic Qualifiers: Hyperlipidemia type: unspecified Qualified Code(s): E78.5 - Hyperlipidemia , unspecified (5) HTN (hypertension) Code(s): I10 - ESSENTIAL (PRIMARY) HYPERTENSION Status: Chronic Qualifiers: Hypertension type: essential hypertension Qualified Code(s): I10 - Essential (primary) hypertension (6) Systolic heart failure Code(s): I50.20 - UNSPECIFIED SYSTOLIC (CONGESTIVE) HEART FAILURE Status: Acute Qualifiers: Heart failure chronicity: unspecified Qualified Code(s): I50.20 - Unspecified systolic (congestive) heart failure (7) Status post aortic valve replacement with prosthetic valve Status: Acute - Plan extubated, chest tubes in place -: doing well post-op * .
--- NOTE | 2018-12-02 13:14 | EKG ---
Test Reason : Blood Pressure : / mmHG Vent. Rate : 084 BPM Atrial Rate : 084 BPM P-R Int : 166 ms QRS Dur : 078 ms QT Int : 436 ms P-R-T Axes : 075 061 095 degrees QTc Int : 515 ms Normal sinus rhythm Left ventricular hypertrophy with repolarization abnormality Prolonged QT Abnormal ECG When compared with ECG of 25-NOV-2018 18:55, (Unconfirmed) No significant change was found Confirmed by ANNAMARIE BO, . SMarli (4) on 12/02/2018 1:14:25 PM Referred By: MADISYN Confirmed By:DR. Aleida DE LUNA MD
[2018-12-02] MEDS: Aspirin 325 MG TAB PO SCH (15:21)
--- NOTE | 2018-12-02 17:34 | PRG ---
DATE OF SERVICE: 12/02/2018 SUBJECTIVE: Ms. Childers will slowly wake up last night, so her extubation was held until this morning. She was extubated when I saw her. She was in no distress. She is very slow to respond to questions and was still sleepy, but would answer questions. She moved all 4 extremities equally. OBJECTIVE: VITAL SIGNS: Heart rate is 72, blood pressure is 91/50, and respiratory rates in the teens. LUNGS: Clear. HEART: Regular rhythm. S1 and S2 are normal. ABDOMEN: Soft and nontender. EXTREMITIES: Without edema. LABORATORY DATA: White count 6.8, hemoglobin 9.1, and platelets 93,000. Sodium 137, potassium 4.7, chloride 111, bicarb 19, BUN 11, and creatinine 0.72. IMAGING DATA: Chest x-ray shows no infiltrates. IMPRESSION: 1. Status post AVR 2. Delayed clearance of anesthesia. 3. History of heavy alcohol use. 4. History of heavy tobacco use. PLAN: She does not clinically appear to be bronchospastic at this time. We will continue to follow the other physicians while she is in the hospital for now. Job ID: [id number] [facility]
[2018-12-02] MEDS: D5 1/2 NS w/20 mEq KCL 1,000 ML IV SCH (17:50)
[2018-12-02] MEDS: Famotidine 20 MG TAB PO SCH (21:32)
[2018-12-03] MEDS: Ketorolac Tromethamine 30 MG/ML VIAL IVP SCH ×4 (00:56→18:42)
[2018-12-03 05:12] LABS: #Lymphocytes 1.2 thou/uL (1.20-3.40); #Monocytes 0.5 thou/uL (0.11-0.59); #Neutrophils 3.4 thou/uL (1.40-6.50); %Basophils 0.1 % (0.0-1.0); %Eosinophils 0.2 % (0.0-10.0); %Lymphocytes 23.3 % (21.0-51.0); %Monocytes 9.2 % (0.0-10.0); %Neutrophils 67.2 % (42.0-75.0); Hemoglobin 8.4 g/dL (12.0-16.0); Mean Corpuscular Hemoglobin 32.5 pg (27.0-31.0); Mean Corpuscular Volume 95.7 fL (78.0-98.0); Mean Platelet Volume 8.5 fL (7.4-10.4); Platelet Count 84 thou/uL (130-400); RBC Distribution Width 12.6 % (11.5-14.5); White Blood Cell (WBC) Count 5.1 thou/uL (4.8-10.8)
[2018-12-03 05:31] LABS: Anion Gap 7 mmol/L (10-20); BUN (Urea Nitrogen) 12 mg/dL (9.8-20.1); Calc. Creatinine Clearance 74 mL/min (70-130); Calcium 8.8 mg/dL (7.8-10.44); Carbon Dioxide 26 mmol/L (23-31); Chloride 108 mmol/L (98-107); Estimated GFR-MDRD 81; Glucose 101 mg/dL (80-115); Potassium 4.4 mmol/L (3.5-5.1); Sodium 137 mmol/L (136-145)
--- NOTE | 2018-12-03 09:23 | RAD ---
CHEST 1 VIEW: HISTORY: Heart surgery. Followup. COMPARISON: 12/02/2018. FINDINGS: Cardiac silhouette is magnified and enlarged. Pulmonary vasculature upper limits of normal. Mediast inum is midline with postoperative changes. Endotracheal catheter no longer visible. Mediastinal dr davis and right subclavian central venous catheter remain in place. No evidence of pneumothorax. [place] llic clips overlie the right axilla. IMPRESSION: 1. Interval extubation. 2. Otherwise, stable radiographic appearance of the chest. POS: CET
[2018-12-03] MEDS: Aspirin 325 MG TAB PO SCH (09:50)
[2018-12-03] MEDS: Magnesium 2 GM/50 ML 2 GM in Premix Bag 1 BAG IVPB SCH (09:50)
[2018-12-03] MEDS: Famotidine 20 MG TAB PO SCH ×2 (09:51→20:23)
--- NOTE | 2018-12-03 13:01 | PDOC.PN ---
- Subjective Encounter Start Date: 12/03/18 Encounter Start Time: 12:59 Subjective: alert, minimal discomfort - Objective Resuscitation Status - Order Detail: 11/26/18 02:17 Resuscitation Status Routine Co-Sign Provider: Resuscitation Status: FULL: Full Resuscitation MAR Reviewed: Yes Vital Signs & Weight: Vital Signs (12 hours) Temp BP Pulse Ox 12/03/18 12:00 98.5 F 103/52 L 12/03/18 08:00 98.2 F 119/66 100 12/03/18 07:40 98 Weight Admit Weight 125 lb Weight 125 lb 14.143 oz Most Recent Monitor Data Heart Rate from ECG 69 NIBP 103/52 NIBP BP-Mean 77 Respiration from ECG 21 SpO2 91 I&O: 12/02/18 12/03/18 12/04/18 06:59 06:59 06:59 Intake Total 1998.9 1676 100 Output Total 1220 942 230 Balance 778.9 734 -130 Result Diagrams: 12/03/18 04:59 12/03/18 04:59 Phys Exam - Physical Examination Neck: no JVD Respiratory: clear to auscultation bilateral Cardiovascular: RRR, no significant murmur Gastrointestinal: soft, positive bowel sounds Musculoskeletal: no edema Dx/Plan (1) Alcohol abuse Code(s): F10.10 - ALCOHOL ABUSE, UNCOMPLICATED Status: Acute (2) Aortic stenosis Code(s): I35.0 - NONRHEUMATIC AORTIC (VALVE) STENOSIS Status: Acute Qualifiers: Cardiac valve disease etiology: etiology unspecified Qualified Code(s): I35.0 - Nonrheumatic aortic (valve) stenosis (3) Cardiomyopathy Code(s): I42.9 - CARDIOMYOPATHY, UNSPECIFIED Status: Acute Qualifiers: Cardiomyopathy type: unspecified Qualified Code(s): I42.9 - Cardiomyopathy , unspecified (4) HLD (hyperlipidemia) Code(s): E78.5 - HYPERLIPIDEMIA, UNSPECIFIED Status: Chronic Qualifiers: Hyperlipidemia type: unspecified Qualified Code(s): E78.5 - Hyperlipidemia , unspecified (5) HTN (hypertension) Code(s): I10 - ESSENTIAL (PRIMARY) HYPERTENSION Status: Chronic Qualifiers: Hypertension type: essential hypertension Qualified Code(s): I10 - Essential (primary) hypertension (6) Systolic heart failure Code(s): I50.20 - UNSPECIFIED SYSTOLIC (CONGESTIVE) HEART FAILURE Status: Acute Qualifiers: Heart failure chronicity: unspecified Qualified Code(s): I50.20 - Unspecified systolic (congestive) heart failure (7) Status post aortic valve replacement with prosthetic valve Status: Acute - Plan chest tube to be removed today, then xfer to tele -: cont ASA -: discuss with cardiology * .
[2018-12-03 14:13] VITALS: BMI 24.5
[2018-12-03] MEDS ORDERED: diphenhydrAMINE 25 MG CAP PO PRN (16:41)
[2018-12-03] MEDS ORDERED: Milk Of Magnesia 30 ML UDCUP PO PRN (16:41)
[2018-12-03] MEDS ORDERED: Mineral Oil ENEMA PR PRN (16:41)
[2018-12-03] MEDS ORDERED: Guaifenesin DM 100-10/5 ML UDCUP PO PRN (16:41)
[2018-12-03] MEDS ORDERED: Zolpidem Tartrate 5 MG TAB PO PRN (16:41)
[2018-12-03] MEDS ORDERED: Mag-Al 1200 mg/1200 mg/30 ML UDCUP PO PRN (16:41)
[2018-12-03] MEDS ORDERED: Nitroglycerin 0.4 MG TAB (25 Tab Bottle) SL PRN (16:41)
[2018-12-03] MEDS ORDERED: Artificial Tears 18 DROP/0.9 ML EA EYE PRN (16:41)
--- NOTE | 2018-12-03 18:46 | PRG ---
DATE OF SERVICE: 12/03/2018 SUBJECTIVE: Ms. Childers looks much better today. She is actually quickly smiling and interacting with new questions. OBJECTIVE: VITAL SIGNS: Blood pressure 113/60, heart rate 66, respiratory rate 18, oximetry is 95% to 97% on room air. LUNGS: Surprisingly clear. HEART: Regular rhythm. S1, S2 are normal. She still has chest tubes in when I saw her earlier this morning. ABDOMEN: Soft and nontender. EXTREMITIES: Without asymmetry or edema. Her feet are warm. LABORATORY DATA: White count 5.1, hemoglobin 8.4, platelets 84,000. Sodium 137 , potassium 4.4, chloride 108, bicarb 26, BUN 12, creatinine 0.73. IMPRESSION: 1. Status post AVR. 2. Blood loss anemia. 3. Thrombocytopenia secondary to consumption and possibly secondary to some degree, long history of alcohol use. 4. History of heavy tobacco use prior to admission. Chest radiograph today was reviewed. She has no new alveolar infiltrates or mass lesions. Once her chest tubes are out, she probably is stable to move out of Critical Care Unit. We will continue to follow for now. Job ID: [id number] [facility]
--- NOTE | 2018-12-03 20:08 | PDOC.CTH ---
Cardiology Progress Note - Subjective Doing better. Sore chest. No BM or gas but not feeling bloated. - Objective Vital Signs Temp BP 12/03/18 16:00 98.2 F 113/60 12/03/18 12:00 98.5 F 103/52 L Admit Weight 125 lb Weight 125 lb 14.143 oz 12/02/18 12/03/18 12/04/18 06:59 06:59 06:59 Intake Total 1998.9 1676 600 Output Total 1220 942 540 Balance 778.9 734 60 - Physical Examination General/Neuro: alert & oriented x3, NAD Neck: no JVD present Lungs: unlabored respirations Heart: RRR Abdomen: NT/ND Extremities: other: (no edema) - Telemetry Telemetry Rhythm: NSR - Labs Result Diagrams: 12/03/18 04:59 12/03/18 04:59 Troponin/CKMB CK-MB (CK-2) 2.8 ng/mL (0-6.6) 11/25/18 18:29 Troponin I 0.142 ng/mL (< 0.028) H 11/26/18 01:50 - Assessment/Plan 1. Critical , s/p AVR 2. Syncope, likely due to critical . 3. Normal coronaries 4. Tobacco use 5. Hx of breast Ca PLAN: - Aspirin for life. - PT as tolerated. - May transfer to telemetry.
[2018-12-03] MEDS: Bisacodyl 10 MG SUPP PR SCH (20:22)
[2018-12-03] MEDS: Bisacodyl 5 MG TAB PO SCH (20:57)
[2018-12-04] MEDS: Ketorolac Tromethamine 30 MG/ML VIAL IVP SCH ×4 (00:32→17:57)
[2018-12-04] MEDS: Aspirin 325 mg Enteric Coated Tablet PO SCH (08:30)
[2018-12-04] MEDS: Bisacodyl 5 MG TAB PO SCH ×2 (08:31→19:48)
[2018-12-04] MEDS: Bisacodyl 10 MG SUPP PR SCH ×2 (08:31→19:48)
[2018-12-04] MEDS: Famotidine 20 MG TAB PO SCH ×2 (08:31→19:48)
[2018-12-04 08:48] LABS: Hemoglobin 8.6 g/dL (12.0-16.0); Mean Corpuscular HGB CONC 35.2 g/dL (32.0-36.0); Mean Corpuscular Hemoglobin 33.1 pg (27.0-31.0); Mean Corpuscular Volume 93.9 fL (78.0-98.0); Mean Platelet Volume 8.7 fL (7.4-10.4); Platelet Count 101 thou/uL (130-400); RBC Distribution Width 12.3 % (11.5-14.5); Red Blood Cell (RBC) Count 2.59 mill/uL (4.20-5.40); White Blood Cell (WBC) Count 4.3 thou/uL (4.8-10.8)
[2018-12-04 09:26] LABS: Lymphocytes 29 % (21-51); MDiff Complete? YES; Monocytes 10 % (0-10); Neutrophil 61 % (42-75); Platelet Morphology Comment Appears Decreased; RBC Morphology Normal
[2018-12-04] MEDS ORDERED: Furosemide 40 MG/4 ML VIAL SLOW IVP SCH (09:30)
--- NOTE | 2018-12-04 09:31 | PDOC.PN ---
- Subjective Encounter Start Date: 12/04/18 Encounter Start Time: 09:27 Subjective: no chest pain, sob - Objective Resuscitation Status - Order Detail: 11/26/18 02:17 Resuscitation Status Routine Co-Sign Provider: Resuscitation Status: FULL: Full Resuscitation MAR Reviewed: Yes Vital Signs & Weight: Vital Signs (12 hours) Temp 12/04/18 08:00 98.6 F 12/04/18 00:00 98.2 F Weight Admit Weight 125 lb Weight 127 lb 6.835 oz Most Recent Monitor Data Heart Rate from ECG 64 NIBP 128/64 NIBP BP-Mean 75 Respiration from ECG 20 SpO2 97 I&O: 12/03/18 12/04/18 12/05/18 06:59 06:59 06:59 Intake Total 1676 600 10 Output Total 942 1075 80 Balance 734 -475 -70 Result Diagrams: 12/04/18 08:11 12/03/18 04:59 Phys Exam - Physical Examination Neck: no JVD Respiratory: clear to auscultation bilateral Cardiovascular: RRR, no significant murmur Gastrointestinal: soft, positive bowel sounds Musculoskeletal: no edema Dx/Plan (1) Alcohol abuse Code(s): F10.10 - ALCOHOL ABUSE, UNCOMPLICATED Status: Acute (2) Aortic stenosis Code(s): I35.0 - NONRHEUMATIC AORTIC (VALVE) STENOSIS Status: Acute Qualifiers: Cardiac valve disease etiology: etiology unspecified Qualified Code(s): I35.0 - Nonrheumatic aortic (valve) stenosis (3) Cardiomyopathy Code(s): I42.9 - CARDIOMYOPATHY, UNSPECIFIED Status: Acute Qualifiers: Cardiomyopathy type: unspecified Qualified Code(s): I42.9 - Cardiomyopathy , unspecified (4) HLD (hyperlipidemia) Code(s): E78.5 - HYPERLIPIDEMIA, UNSPECIFIED Status: Chronic Qualifiers: Hyperlipidemia type: unspecified Qualified Code(s): E78.5 - Hyperlipidemia , unspecified (5) HTN (hypertension) Code(s): I10 - ESSENTIAL (PRIMARY) HYPERTENSION Status: Chronic Qualifiers: Hypertension type: essential hypertension Qualified Code(s): I10 - Essential (primary) hypertension (6) Systolic heart failure Code(s): I50.20 - UNSPECIFIED SYSTOLIC (CONGESTIVE) HEART FAILURE Status: Acute Qualifiers: Heart failure chronicity: unspecified Qualified Code(s): I50.20 - Unspecified systolic (congestive) heart failure (7) Status post aortic valve replacement with prosthetic valve Status: Acute - Plan doing well postop -: cont ASA -: disposition per [facility] * .
--- NOTE | 2018-12-04 12:02 | PRG ---
DATE OF SERVICE: 12/04/2018 SUBJECTIVE: Ms. Childers is doing well. She has no complaints. OBJECTIVE: VITAL SIGNS: She is afebrile, heart rate is in the 70s, blood pressure 132/58, and respiratory rate is 22. LUNGS: Clear. HEART: Regular rhythm. ABDOMEN: Soft. EXTREMITIES: Without asymmetry. LABORATORY DATA: White count 4.3, hemoglobin 8.6, and platelets 101,000. Sodium 137, potassium 4.4, chloride 108, bicarb 26, BUN 12, and creatinine 0.73. IMPRESSION: 1. Status post aortic valve replacement with normal coronaries in spite of 2 pack-a-day smoking history. 2. History of breast cancer. 3. History of daily alcohol use. PLAN: Transfer to telemetry when bed is available. Job ID: [id number]
--- NOTE | 2018-12-04 19:12 | PDOC.CTH ---
Cardiology Progress Note - Subjective No new issues. Sore chest. - Objective Vital Signs Temp Pulse Pulse BP BP Pulse Ox Pulse Ox 12/04/18 16:00 98.2 F 12/04/18 14:04 76 70 132/64 125/66 97 91 L 12/04/18 11:00 98.6 F 12/04/18 09:35 63 76 107/55 L 132/58 L 95 94 L 12/04/18 08:00 98.6 F Admit Weight 125 lb Weight 127 lb 6.835 oz 12/03/18 12/04/18 12/05/18 06:59 06:59 06:59 Intake Total 1676 600 526 Output Total 942 2695 1940 Balance 880 -212 -4891 - Physical Examination General/Neuro: alert & oriented x3, NAD Neck: no JVD present Lungs: CTA, unlabored respirations Heart: RRR Abdomen: NT/ND Extremities: other: (no edema) - Telemetry Telemetry Rhythm: NSR - Labs Result Diagrams: 12/04/18 08:11 12/03/18 04:59 Troponin/CKMB CK-MB (CK-2) 2.8 ng/mL (0-6.6) 11/25/18 18:29 Troponin I 0.142 ng/mL (< 0.028) H 11/26/18 01:50 - Assessment/Plan 1. Critical , s/p AVR 2. Syncope, likely due to critical . 3. Normal coronaries 4. Tobacco use 5. Hx of breast Ca PLAN: - Aspirin for life. - PT as tolerated. - May transfer to telemetry.
--- NOTE | 2018-12-05 09:31 | DIS ---
DATE OF ADMISSION: 11/26/2018 DATE OF DISCHARGE: 12/05/2018 DIAGNOSIS: Aortic stenosis. PROCEDURES: 1. Cardiac catheterization. 2. Aortic valve replacement with a #27 Magna bioprosthetic valve. DESCRIPTION OF HOSPITAL STAY: Ms. Childers is a 63-year-old woman, who was admitted with syncope. As part of her workup, she had an echocardiogram performed, which showed critical aortic stenosis. Cardiac catheterization was free of any coronary artery disease. She was taken to the operating room and underwent aortic valve replacement with a #27 Magna bioprosthetic valve on 12/01. Postoperatively, she has done well. She has had no rhythm disturbances. She has recovered nicely from surgery and is currently ambulatory, tolerating regular diet, having good bowel and bladder function. Incisions are clean and dry without evidence of any infection. DISCHARGE MEDICATIONS: Include aspirin 325 mg daily. She has not been able to tolerate beta-margie or RAKEL inhibitor yet. FOLLOWUP: Follow up was with in [address] Cooper in a month. Job ID: [id number]
[2018-12-05] MEDS: Bisacodyl 5 MG TAB PO SCH (09:38)
[2018-12-05] MEDS: Aspirin 325 mg Enteric Coated Tablet PO SCH (09:38)
[2018-12-05] MEDS: Bisacodyl 10 MG SUPP PR SCH (09:39)
[2018-12-05] MEDS: Famotidine 20 MG TAB PO SCH (09:39)
[2018-12-05 12:10] VITALS: BP 141/77; TEMP 98.8
--- NOTE | 2018-12-05 16:43 | PRG ---
DATE OF SERVICE: 12/05/2018 SUBJECTIVE: Ms. Childers is doing well. She is ambulating in the room. She denies being short of breath. OBJECTIVE: VITAL SIGNS: Blood pressure 141/77, she is afebrile, heart rate 66, oximetry is 94% on room air. LUNGS: Clear. HEART: Regular rate and rhythm. ABDOMEN: Soft. LABORATORY DATA: There is no new lab. IMPRESSION AND PLAN: 1. Status post aortic valve replacement, clinically stable. 2. Dhk-hncp-f-day smoking history. I have asked her to see me in 3 months. We will do spirometry in the office. I doubt she will have much of any chronic obstructive pulmonary disease. She actually did quite well with the surgery other than slow clearance of anesthetic first 24 hours. 3. Blood loss anemia, stable. 4. History of daily alcohol use with no signs of withdrawal. Job ID: [id number]
--- NOTE | 2018-12-05 16:44 | PDOC.CTH ---
Cardiology Progress Note - Subjective Doing very well. Walking around with PT. Passing gas. - Objective Vital Signs Temp Pulse Resp BP BP Pulse Ox 12/05/18 12:15 141/77 H 12/05/18 12:09 98.8 F 66 16 141/77 H 94 L 12/05/18 09:37 142/77 H 94 L 12/05/18 07:54 98.5 F 67 18 142/77 H 94 L Admit Weight 125 lb Weight 128 lb 2 oz 12/04/18 12/05/18 12/06/18 06:59 06:59 06:59 Intake Total 600 726 Output Total 4403 7500 Balance -475 1214 - Physical Examination General/Neuro: alert & oriented x3, NAD Neck: no JVD present Lungs: CTA, unlabored respirations Heart: RRR Abdomen: NT/ND Extremities: other: (no edema) - Telemetry Telemetry Rhythm: NSR - Labs Result Diagrams: 12/04/18 08:11 12/03/18 04:59 Troponin/CKMB CK-MB (CK-2) 2.8 ng/mL (0-6.6) 11/25/18 18:29 Troponin I 0.142 ng/mL (< 0.028) H 11/26/18 01:50 - Assessment/Plan 1. Critical , s/p AVR 2. Syncope, likely due to critical . 3. Normal coronaries 4. Tobacco use 5. Hx of breast Ca PLAN: - Aspirin for life. - May discharge from cardiac perspective. - Follow up in the office in 1 month.
--- NOTE | 2018-12-07 01:45 | DIS ---
DATE OF ADMISSION: 11/26/2018 DATE OF DISCHARGE: 12/05/2018 PRIMARY CARE PHYSICIAN: Did not have a primary care physician. DISCHARGE DISPOSITION: Home. PRIMARY DISCHARGE DIAGNOSES: 1. Critical aortic stenosis. 2. Syncope secondary to critical aortic stenosis. 3. History of breast cancer. DISCHARGE MEDICATIONS: [place] 5/325 one tablet q.4 p.r.n. as well as aspirin 325 mg daily. PROCEDURES DONE DURING THE ADMISSION: The patient had an MRI of the brain showing no evidence of any acute intracranial abnormality. There was some signal abnormality related to hyperdensity of the foramen of [place]. The patient had a cardiac catheterization showing no evidence of any flow-limiting disease, but did demonstrate critical aortic stenosis. The patient had a lower extremity venous Doppler which was negative of the right leg. The patient also had an echocardiogram which demonstrated an ejection fraction of 20% to 25%. There was grade 1/3 diastolic dysfunction and there was a heavily calcified aortic valve with a valve area of 0.3 cm2. The patient also had a CT angiogram of the chest showing no evidence of dissection or pulmonary embolism. CODE STATUS: Full code. ALLERGIES: LEVOFLOXACIN. HOSPITAL COURSE: Ms. Childers is a pleasant 63-year-old female, who presented to the emergency room after suffering a syncopal episode. In the evaluation for syncope, she was found to have a critical aortic stenosis. Cardiology was consulted and she underwent cardiac catheterization. There was no evidence of any flow-limiting coronary artery disease, but it did verify the critical aortic stenosis. Vascular Surgery was consulted and the patient underwent aortic valve replacement with a bioprosthetic valve. She tolerated the procedure well. She had an uneventful postoperative course and was subsequently able to be discharged home on 12/05/2018, and to follow up with Dr. Mcnair as instructed and also with her primary care physician in 1 to 2 weeks. Job ID: [id number]
[2018-12-09 09:42] LABS: Actual Bicarbonate (HCO3a) 24.7 mEq/L (22-28); Analyzer IN Cardio OR; Base Excess (BEa) -1.2 mEq/L (-2.0 to +3.0); CO2 Tension 45.8 mmHg (35.0-45.0); Calcium, Ionized 1.18 mmol/L (1.12-1.30); Carboxyhemoglobin (COHb) 0.2 gm% (0.0-3.0); Hemoglobin (Hb) 12.3 g/dL (12.0-16.0); Potassium - ABG Lab 3.81 mmol/L (3.70-5.30); pH, Arterial 7.35 (7.35-7.45)
[2018-12-09 09:43] LABS: Actual Bicarbonate (HCO3a) 23.3 mEq/L (22-28); Analyzer IN Cardio OR; Base Excess (BEa) -2.4 mEq/L (-2.0 to +3.0); CO2 Tension 43.5 mmHg (35.0-45.0); Calcium, Ionized 1.16 mmol/L (1.12-1.30); Carboxyhemoglobin (COHb) 0.2 gm% (0.0-3.0); Hemoglobin (Hb) 11.9 g/dL (12.0-16.0); O2 Tension (PaO2) 423.4 mmHg (> 80.0); pH, Arterial 7.35 (7.35-7.45)
[2018-12-09 09:43] LABS: Actual Bicarbonate (HCO3a) 23.7 mEq/L (22-28); Analyzer IN Cardio OR; Base Excess (BEa) -0.5 mEq/L (-2.0 to +3.0); CO2 Tension 36.8 mmHg (35.0-45.0); Calcium, Ionized 0.96 mmol/L (1.12-1.30); Carboxyhemoglobin (COHb) 0.5 gm% (0.0-3.0); Hemoglobin (Hb) 8.1 g/dL (12.0-16.0); O2 Tension (PaO2) 463.8 mmHg (> 80.0); Potassium - ABG Lab 3.98 mmol/L (3.70-5.30); pH, Arterial 7.43 (7.35-7.45)
[2018-12-09 09:44] LABS: Actual Bicarbonate (HCO3a) 25.2 mEq/L (22-28); Analyzer IN Cardio OR; Base Excess (BEa) -0.6 mEq/L (-2.0 to +3.0); Calcium, Ionized 1.04 mmol/L (1.12-1.30); Carboxyhemoglobin (COHb) 0.6 gm% (0.0-3.0); Hemoglobin (Hb) 8.8 g/dL (12.0-16.0); O2 Tension (PaO2) 361.9 mmHg (> 80.0); Potassium - ABG Lab 5.06 mmol/L (3.70-5.30); pH, Arterial 7.35 (7.35-7.45)
[2018-12-09 09:44] LABS: Actual Bicarbonate (HCO3v) 24 mEq/L (22-28); Analyzer IN Cardio OR; Base Excess -1.7 mEq/L (-2.0 to +3.0); Calcium, Ionized 1.06 mmol/L (1.16-1.32); Chloride (ABG LAB) 106 mmol/L (98-106); Potassium - ABG Lab 5.04 mmol/L (3.70-5.30); Sodium 134.7 mmol/L (133-146); pH (venous) 7.33 (7.32-7.43)
[2018-12-09 09:45] LABS: Actual Bicarbonate (HCO3a) 22.6 mEq/L (22-28); Analyzer IN Cardio OR; Base Excess (BEa) -3.3 mEq/L (-2.0 to +3.0); CO2 Tension 44.1 mmHg (35.0-45.0); Calcium, Ionized 1.06 mmol/L (1.12-1.30); Carboxyhemoglobin (COHb) 0.1 gm% (0.0-3.0); Hemoglobin (Hb) 9.5 g/dL (12.0-16.0); O2 Tension (PaO2) 396.8 mmHg (> 80.0); Potassium - ABG Lab 4.72 mmol/L (3.70-5.30); pH, Arterial 7.33 (7.35-7.45)
[2018-12-09 09:45] LABS: Actual Bicarbonate (HCO3a) 22.4 mEq/L (22-28); Analyzer IN Cardio OR; Base Excess (BEa) -4.4 mEq/L (-2.0 to +3.0); CO2 Tension 48.1 mmHg (35.0-45.0); Calcium, Ionized 1.08 mmol/L (1.12-1.30); Carboxyhemoglobin (COHb) 0.3 gm% (0.0-3.0); Hemoglobin (Hb) 11.9 g/dL (12.0-16.0); O2 Tension (PaO2) 315.2 mmHg (> 80.0); Potassium - ABG Lab 4.84 mmol/L (3.70-5.30); pH, Arterial 7.29 (7.35-7.45)
[2018-12-09 10:33] LABS: Puncture Site ALINE
[2018-12-09 10:35] LABS: Puncture Site ALINE
[2018-12-09 10:36] LABS: Puncture Site ALINE
[2018-12-09 10:38] LABS: Puncture Site ALINE
[2018-12-09 10:38] LABS: Puncture Site ALINE
[2018-12-09 10:39] LABS: Puncture Site ALINE
== END 2018-12-05 17:50 | disposition home or self-care (01) | DRG 216 ==
LOC: ERS 17:44 → OBSVTOIN 11-26 00:31 → 2SW 11-26 00:31 → 2NO 11-27 15:33 → CCU 12-01 13:54 → 2NO 12-04 18:21
PROVIDERS: ADMIT Hospitalist; ATTEND Hospitalist
PROC: B2111ZZ Fluoroscopy of Multiple Coronary Arteries using Low Osmolar Contrast (ICD-10-PCS; 2018-11-26)
PROC: 4A023N7 Measurement of Cardiac Sampling and Pressure, Left Heart, Percutaneous Approach (ICD-10-PCS; 2018-11-26)
PROC: 02RF08Z Replacement of Aortic Valve with Zooplastic Tissue, Open Approach (ICD-10-PCS; principal; 2018-12-01)
PROC: 02B70ZK Excision of Left Atrial Appendage, Open Approach (ICD-10-PCS; 2018-12-01)
PROC: 5A1221Z Performance of Cardiac Output, Continuous (ICD-10-PCS; 2018-12-01)
DX: I35.0 Nonrheumatic aortic (valve) stenosis (principal); I50.21 Acute systolic (congestive) heart failure; I42.8 Other cardiomyopathies; M54.9 Dorsalgia, unspecified; G89.29 Other chronic pain; F17.210 Nicotine dependence, cigarettes, uncomplicated; E78.5 Hyperlipidemia, unspecified; F10.10 Alcohol abuse, uncomplicated; I11.0 Hypertensive heart disease with heart failure; D64.9 Anemia, unspecified; Z90.13 Acquired absence of bilateral breasts and nipples; Z85.3 Personal history of malignant neoplasm of breast
CPT/HCPCS: 36415; 36416; 36430; 70450; 70551; 71045; 71275; 80048; 80053; 80061; 80306; 80307; 81003; 81015; 82550; 82553; 82805; 83735; 83880; 84443; 84484; 85007; 85025; 85027; 85379; 85610; 85730; 86850; 86900; 86901; 87086; 93005; 93010; 93306; 93454; 93798; 93880; 94002; 94003; 94760; 96361; 96374; C1769; J0670; J0690; J1100; J1642; J1644; J1650; J1885; J1940; J2001; J2150; J2250; J2260; J2270; J2370; J2405; J2704; J2720; J2795; J3010; J3370; J3475; J3480; J7050; P9045; Q9967; S0017; S0028